=== PATIENT | female | born 1950 | race Caucasian/White ===

== ENCOUNTER 2024-01-31 13:09 | Outpatient (REF) | payer OTHER, SELFPAY ==
--- NOTE | ~2024-01-31 | MR_ITS ---
MR LUMBAR SPINE WITHOUT CONTRAST CLINICAL INFORMATION: Low back pain COMPARISON: None available. TECHNIQUE: MRI of the lumbar spine was obtained using routine sequences without contrast. FINDINGS: There are 5 nonrib-bearing lumbar-type vertebral bodies. There are postoperative changes following laminectomy and posterior instrumented lumbar interbody fusion at the L3-S1 levels. Surgical hardware consists of interbody cages at L3-L4, L4-L5, and L5-S1 and posterior fusion hardware spanning the L3-S1 levels. The surgical hardware is not diagnostically assessed on MRI. There is grade 1 retrolisthesis of L1 on L2 and L2 on L3. Artifact from a right hip prosthesis. There are fatty type degenerative endplate signal changes at T12-L1 and L1-L2. There are multilevel endplate osteophytes. Conus terminates at the T12-L1 level. T2 signal changes within the paraspinal musculature at and below the postoperative levels most likely related to denervation. There is sigmoid diverticulosis. Right iliac bone graft donor site. L1-L2: Diffuse disc osteophyte complex with a superimposed inferiorly migrating left paracentral disc extrusion that compresses the traversing left L2 nerve root within the left L2 lateral recess. Mild central canal stenosis and mild bilateral foraminal encroachment with disc osteophyte resulting in mass effect on the extraforaminal L1 nerve roots bilaterally. L2-L3: At the junctional level, there is grade 1 retrolisthesis and a diffuse disc osteophyte complex along with severe bilateral facet arthropathy, ligamentum flavum thickening, and epidural lipomatosis result in moderate to severe central canal stenosis, severe bilateral subarticular zone stenosis with compression of the traversing L3 nerve roots bilaterally, and disc osteophyte results in mass effect on the extraforaminal L2 nerve roots bilaterally. L3-L4: Postoperative changes following laminectomy and posterior instrumented lumbar interbody fusion. Diffuse osteophytic ridging and bilateral facet arthropathy. No central canal stenosis and no foraminal stenosis. L4-L5: Postoperative changes following laminectomy and posterior instrumented lumbar interbody fusion. No central canal stenosis. Osteophytic ridging results in mild bilateral foraminal encroachment. L5-S1: Grade 2 anterolisthesis in the setting of chronic L5 pars defects. Postoperative changes following laminectomy and posterior instrumented fusion. Osteophytic ridging results in moderate left and mild to moderate right foraminal encroachment. No central canal stenosis. MR/MR lumbar spine wo con IMPRESSION: * At L1-L2, there is an inferiorly migrating left paracentral disc extrusion compresses the traversing left L2 nerve root within the left L2 lateral recess. Disc osteophyte results in mass effect on the extraforaminal L1 nerve roots bilaterally. * At the junctional L2-L3 level, grade 1 retrolisthesis and advanced multifactorial degenerative changes result in moderate to severe central canal stenosis, severe bilateral subarticular zone stenosis with compression of the traversing L3 nerve roots bilaterally, and disc osteophyte results in mass effect on the extraforaminal L2 nerve roots bilaterally. * There are postoperative changes following laminectomy and posterior instrumented lumbar interbody fusion at the L3-S1 levels. Surgical hardware is not diagnostically assessed on MRI. There is grade 2 anterolisthesis of L5 on S1 in the setting of chronic L5 pars defects. Osteophytic ridging results in moderate left and mild to moderate right foraminal encroachment at L5-S1.
== END 2024-01-31 13:10 | disposition home or self-care (01) ==
LOC: HO.MRI 13:09
PROVIDERS: PCP Emergency Medicine; Visit Provider Emergency Medicine
DX: M54.50 Low back pain, unspecified (principal); R06.00 Dyspnea, unspecified; M25.511 Pain in right shoulder
CPT/HCPCS: 72148